=== PATIENT | male | born 1950 | race Caucasian/White ===

== ENCOUNTER 2019-08-31 10:30 | Outpatient (CLI) | payer MEDICARE, SELFPAY | END 2019-08-31 10:50 | PROVIDERS: PCP Family Medicine; Visit Provider Internal Medicine Cardiovascular Disease | DX: I48.91 Unspecified atrial fibrillation (principal); I42.9 Cardiomyopathy, unspecified; I34.0 Nonrheumatic mitral (valve) insufficiency | CPT/HCPCS: 99205; 93005; 93010 ==

== ENCOUNTER → 2019-08-31 10:51 | Outpatient (BNVA) | payer MEDICARE, SELFPAY | PROVIDERS: PCP Family Medicine; Visit Provider Internal Medicine Cardiovascular Disease | DX: I34.0 Nonrheumatic mitral (valve) insufficiency (principal); I48.91 Unspecified atrial fibrillation; I42.9 Cardiomyopathy, unspecified | CPT/HCPCS: 99205 ==

== ENCOUNTER 2019-09-04 11:20 | Outpatient (REF) | payer MEDICARE, SELFPAY ==
[2019-09-04 20:46] LABS: HCT 38.3 % (40.0-50.0); Mean Corp. HGB Concentration 31.3 g/dL (32.0-36.0); Mean Corpuscular Hemoglobin 31.1 pg (27.0-33.0); Mean Corpuscular Volume 99.2 fL (80-95); Mean Platelet Volume 10.9 fL (8.0-11.0); Platelet Count 160 x1000/uL (130-400); RBC 3.86 m/cumm (4.50-6.00); RBC Distribution Width 14.9 % (11.8-14.1); White Blood Cell Count 5.72 k/cumm (4.4-10.8)
[2019-09-04 20:56] LABS: Anion Gap 6.3 mmol/L (3-11); BUN 23 mg/dL (7-18); CO2 29.7 mmol/L (21.0-32.0); CREATININE 1.32 mg/dL (0.70-1.30); Calcium 8.8 mg/dL (8.5-10.1); Chloride 106 mmol/L (98-107); Estimated GFR 53.94 (mL/min/1.73m2); Glucose 89 mg/dL (74-106); Potassium 5.1 mmol/L (3.5-5.1); Sodium 142 mmol/L (136-145)
== END 2019-09-04 11:40 ==
LOC: NCHCN 11:20
PROVIDERS: PCP Family Medicine; Visit Provider Family Medicine
DX: I48.0 Paroxysmal atrial fibrillation (principal); D69.6 Thrombocytopenia, unspecified; I50.9 Heart failure, unspecified
CPT/HCPCS: 80048; 85027

== ENCOUNTER → 2020-04-08 09:38 | Outpatient (BNVA) | payer MEDICARE, SELFPAY | PROVIDERS: PCP Family Medicine; Referring Provider Family Medicine; Visit Provider Internal Medicine Cardiovascular Disease | DX: I34.0 Nonrheumatic mitral (valve) insufficiency (principal); I48.91 Unspecified atrial fibrillation; I42.9 Cardiomyopathy, unspecified; Z79.01 Long term (current) use of anticoagulants | CPT/HCPCS: 99214 ==

== ENCOUNTER → 2020-06-21 12:33 | Outpatient (BNVA) | payer MEDICARE, SELFPAY | PROVIDERS: PCP Family Medicine; Referring Provider Family Medicine; Visit Provider Internal Medicine Cardiovascular Disease | DX: I34.0 Nonrheumatic mitral (valve) insufficiency (principal); I48.91 Unspecified atrial fibrillation; Z98.890 Other specified postprocedural states; Z79.01 Long term (current) use of anticoagulants | CPT/HCPCS: 99214 ==

== ENCOUNTER 2020-11-10 15:32 | Outpatient (REF) | payer MEDICARE, SELFPAY ==
[2020-11-10 19:59] LABS: ALT 16 U/L (16-63); AST 37 U/L (15-37); Albumin 3.7 g/dL (3.4-5.0); Alkaline Phosphatase 106 U/L (46-116); Anion Gap 8.5 mmol/L (3-11); BUN 30 mg/dL (7-18); Bilirubin, Total 2.8 mg/dL (0.2-1.0); CO2 26.5 mmol/L (21.0-32.0); CREATININE 1.4 mg/dL (0.70-1.30); Calcium 8.8 mg/dL (8.5-10.1); Calculated LDL 82 mg/dL (<100); Chloride 109 mmol/L (98-107); Cholesterol 152 mg/dL (<200); Estimated GFR 50.25 (mL/min/1.73m2); Glucose 80 mg/dL (74-106); HDL Cholesterol 58 mg/dL (40-60); Potassium 4.9 mmol/L (3.5-5.1); Sodium 144 mmol/L (136-145); Total Protein 6.3 g/dL (6.4-8.2); Triglyceride 60 mg/dL (<150)
== END 2020-11-10 15:33 | disposition home or self-care (01) ==
LOC: NCHCN 15:32
PROVIDERS: PCP Family Medicine; Visit Provider Nurse Practitioner Family
DX: I10 Essential (primary) hypertension (principal); I48.91 Unspecified atrial fibrillation
CPT/HCPCS: 80053; 80061